=== PATIENT | female | born 1960 | race African-American/Black ===

== ENCOUNTER 2016-07-21 15:54 | Emergency (ER) | payer SELFPAY ==
[~2016-07-21] VITALS: Ht 175.3 cm; Wt 74.8 kg
[2016-07-21] MEDS ORDERED: IV NS 0.9% 1,000 ML BAG IV ONE (16:30)
[2016-07-21] MEDS ORDERED: FAMOTIDINE/PF INJ 20 MG/2 ML VIAL IV ONE ×2 (16:30→16:46)
[2016-07-21] MEDS ORDERED: HYDROMORPHONE INJ 2 MG/ML DISP.SYRIN IV ONE ×2 (16:30→17:30)
[2016-07-21] MEDS ORDERED: ONDANSETRON HCL/PF 4 MG/2 ML VIAL IVP ONE (16:30)
[2016-07-21] MEDS ORDERED: HYDROMORPHONE 1 MG/1 ML DISP.SYRIN ONE ×2 (16:46→17:21)
[2016-07-21] MEDS ORDERED: ONDANSETRON HCL/PF 4 MG/2 ML VIAL ONE (16:46)
[2016-07-21] MEDS ORDERED: IV SET PRIMARY 1 EA INFUS.SET MC ONE (16:46)
[2016-07-21] MEDS ORDERED: IV NS 0.9% 1,000 ML ONE (16:46)
[2016-07-21 16:53] LABS: BASOPHILS % (AUTO) 0.4 % (0.0-2.0); EOSINOPHILS # (AUTO) 0.2 /CMM (0.0-0.7); EOSINOPHILS % (AUTO) 4.7 % (0.0-6.0); HEMATOCRIT 40 % (33-45); HEMOGLOBIN 13.1 g/dL (11.5-14.8); LYMPHOCYTES % (AUTO) 27.7 % (20.0-44.0); MEAN CORPUSCULAR HEMOGLOBIN 30 PG (26.0-33.0); MEAN CORPUSCULAR HGB CONC 33 g/dl (31.0-36.0); MEAN CORPUSCULAR VOLUME 91 fL (82-100); MONOCYTES # (AUTO) 0.5 /CMM (0.1-1.30); MONOCYTES % (AUTO) 13.4 % (2.0-12.0); NEUTROPHILS % (AUTO) 53.8 % (43.0-81.0); PLATELET COUNT (AUTO) 223 /CMM (150-450); RDW COEFFICIENT OF VARIATION 12.3 (11.5-15.0); RED BLOOD CELL COUNT(AUTO) 4.43 MIL/uL (4.0-5.2); WHITE BLOOD COUNT (AUTO) 3.7 K/uL (4.3-11.0)
[2016-07-21 17:07] LABS: INR 0.99 (0.87-1.13); PROTHROMBIN TIME 10.4 SECS (9.5-12.7)
[2016-07-21 17:09] LABS: ALBUMIN 3.8 g/dL (3.4-5.0); BILIRUBIN,DIRECT 0.1 mg/dL (0.0-0.2); BILIRUBIN,TOTAL 0.6 mg/dL (0.2-1.0); CALCIUM, SERUM 9.3 mg/dL (8.5-10.1); CREATININE 0.7 mg/dL (0.6-1.3); POTASSIUM 3.1 mmol/L (3.5-5.1); TOTAL PROTEIN, SERUM 7.9 g/dL (6.4-8.2)
[2016-07-21 17:12] LABS: LACTIC ACID 1.3 mmol/L (0.4-2.0)
[2016-07-21] MEDS ORDERED: POTASSIUM CHLORIDE 20 MEQ TAB.PRT.SR PO ONE ×2 (17:41→18:00)
[2016-07-21 18:28] VITALS: BP 111/67
== END 2016-07-21 18:29 | disposition home or self-care (01) ==
LOC: ER 15:58
DX: R10.13 Epigastric pain (principal); E87.6 Hypokalemia; N28.1 Cyst of kidney, acquired; N20.0 Calculus of kidney; Z91.041 Radiographic dye allergy status
CPT/HCPCS: 36415; 80048-TC; 80076-TC; 83605-TC; 83690-TC; 85025-TC; 85730-TC; A4606; J1170; J2405; J3490; J7030; Z7610

== ENCOUNTER 2016-07-22 14:24 | Emergency (ER) | payer SELFPAY ==
[~2016-07-22] VITALS: Ht 172.7 cm; Wt 74.8 kg
--- NOTE | 2016-07-22 14:40 | NUR ---
PT BIB SELF, CC: ABDOMINAL PAIN RECENT HISTORY OF PANCREATIC CA. PLACED ON MONITOR VSS.
[2016-07-22 14:53] VITALS: BP 130/83
[2016-07-22] MEDS ORDERED: HYDROCODONE/APAP 10/325MG 1 EA TABLET ONE (14:54)
[2016-07-22] MEDS ORDERED: HYDROCODONE/APAP 10/325MG 1 EA TABLET PO ONE (15:00)
[2016-07-22] MEDS ORDERED: HYDROCODONE/APAP 5/325MG 1 EACH TABLET PO ONE (15:00)
--- NOTE | 2016-07-22 15:10 | NUR ---
Patient discharged to home in stable condition. Written and verbal after care instructions given. Patient verbalizes understanding of instruction. PRESCRIPTION GIVEN TO PATIENT
== END 2016-07-22 15:10 | disposition home or self-care (01) ==
LOC: ER 15:09
DX: R10.13 Epigastric pain (principal); G89.29 Other chronic pain; C25.9 Malignant neoplasm of pancreas, unspecified; I10 Essential (primary) hypertension
CPT/HCPCS: A4606; Z7610

== ENCOUNTER 2016-08-06 06:53 | Emergency (ER) | payer SELFPAY ==
[~2016-08-06] VITALS: Ht 172.7 cm; Wt 70.3 kg
--- NOTE | 2016-08-06 07:05 | NUR ---
PT PRESENTED TO THE ER WITH A C/O LUQ ABD PAIN 12/15. PT STATED THAT SHE HAS HX OF PANCREATIC CA. PT AMBULATED TO BED #3.
--- NOTE | 2016-08-06 07:07 | NUR ---
DR. MENEZES IS AT THE BEDSIDE.
[2016-08-06] MEDS ORDERED: ONDANSETRON 4 MG TAB.RAPDIS ONE (07:19)
[2016-08-06] MEDS ORDERED: HYDROMORPHONE INJ 2 MG/ML DISP.SYRIN ONE (07:20)
[2016-08-06] MEDS ORDERED: ONDANSETRON 4 MG TAB.RAPDIS PO ONE (07:30)
[2016-08-06] MEDS ORDERED: HYDROMORPHONE INJ 2 MG/ML DISP.SYRIN IM ONE (07:30)
--- NOTE | 2016-08-06 07:33 | NUR ---
REPORT GIVEN GIVEN TO TERRI MALLOY
[2016-08-06 07:39] LABS: BASOPHILS % (AUTO) 0.4 % (0.0-2.0); EOSINOPHILS # (AUTO) 0.1 /CMM (0.0-0.7); EOSINOPHILS % (AUTO) 3.1 % (0.0-6.0); HEMATOCRIT 40 % (33-45); HEMOGLOBIN 13.1 g/dL (11.5-14.8); LYMPHOCYTES # (AUTO) 0.8 /CMM (0.8-4.8); LYMPHOCYTES % (AUTO) 36.7 % (20.0-44.0); MEAN CORPUSCULAR HEMOGLOBIN 30 PG (26.0-33.0); MEAN CORPUSCULAR HGB CONC 33 g/dl (31.0-36.0); MEAN CORPUSCULAR VOLUME 92 fL (82-100); MONOCYTES # (AUTO) 0.2 /CMM (0.1-1.30); NEUTROPHILS # (AUTO) 1.1 /CMM (1.8-8.9); NEUTROPHILS % (AUTO) 48.8 % (43.0-81.0); PLATELET COUNT (AUTO) 243 /CMM (150-450); RDW COEFFICIENT OF VARIATION 13.1 (11.5-15.0); RED BLOOD CELL COUNT(AUTO) 4.34 MIL/uL (4.0-5.2); WHITE BLOOD COUNT (AUTO) 2.2 K/uL (4.3-11.0)
[2016-08-06 07:57] LABS: CALCIUM, SERUM 9.5 mg/dL (8.5-10.1); CREATININE 0.7 mg/dL (0.6-1.3); POTASSIUM 3.4 mmol/L (3.5-5.1)
[2016-08-06 08:09] LABS: ALBUMIN 3.7 g/dL (3.4-5.0); BILIRUBIN,DIRECT 0.1 mg/dL (0.0-0.2); BILIRUBIN,TOTAL 0.4 mg/dL (0.2-1.0); TOTAL PROTEIN, SERUM 7.9 g/dL (6.4-8.2)
--- NOTE | 2016-08-06 08:26 | NUR ---
Patient discharged to home in stable condition. Written and verbal after care instructions given. Patient verbalizes understanding of instruction.
[2016-08-06 08:27] VITALS: BP 124/76
[2016-08-06 08:31] LABS: LYMPHOCYTES % (MANUAL) 46 % (16-48); MONOCYTES % (MANUAL) 13 % (0-11.0); NEUTROPHILS % (MANUAL) 41 (42-76); PLATELET ESTIMATE ADEQUATE
== END 2016-08-06 08:28 | disposition home or self-care (01) ==
LOC: ER 06:55
DX: R10.13 Epigastric pain (principal); I10 Essential (primary) hypertension; C25.9 Malignant neoplasm of pancreas, unspecified
CPT/HCPCS: 36415; 80048; 80076; 83690; 85025; 96372; 99284; A4606; J1170; Q0162; Z7610

== ENCOUNTER 2016-09-22 12:21 | Emergency (ER) | payer SELFPAY ==
[~2016-09-22] VITALS: Ht 172.7 cm; Wt 70.3 kg
[2016-09-22] MEDS ORDERED: HYDR-3658 (12:27)
[2016-09-22] MEDS ORDERED: HYDR-3652 (12:28)
[2016-09-22 12:34] VITALS: BP 150/94
[2016-09-22] MEDS ORDERED: ONDANSETRON 4 MG TAB.RAPDIS ONE (13:12)
[2016-09-22] MEDS ORDERED: HYDROMORPHONE 1 MG/1 ML DISP.SYRIN ONE (13:13)
[2016-09-22] MEDS ORDERED: ONDANSETRON HCL/PF 4 MG/2 ML VIAL IM ONE (13:30)
[2016-09-22] MEDS ORDERED: HYDROMORPHONE 1 MG/1 ML DISP.SYRIN IM ONE (13:30)
== END 2016-09-22 13:24 | disposition home or self-care (01) ==
LOC: ER 12:25
DX: R10.13 Epigastric pain (principal); I10 Essential (primary) hypertension; C25.9 Malignant neoplasm of pancreas, unspecified
CPT/HCPCS: A4606; J1170; Q0162; Z7610